=== PATIENT | female | born 1940 | race Caucasian/White ===

== ENCOUNTER 2017-10-24 17:38 | Emergency (ER) | payer OTHER ==
--- NOTE | 2017-10-24 18:03 | CPEKG ---
Heart Rate: 100 RR Interval: 600 P-R Interval: 208 QRSD Interval: 68 QT Interval: 344 QTC Interval: 444 P Briscoe: 72 QRS Briscoe: 28 T Wave Briscoe: 56 EKG Severity - BORDERLINE ECG - EKG Impression: SINUS TACHYCARDIA EKG Impression: PROBABLE LEFT ATRIAL ABNORMALITY Electronically Signed By: Vandana Pimentel 24-Oct-2017 21:00:51
--- NOTE | 2017-10-24 18:08 | EDPHY ---
HPI/HX/ROS/PE/MDM Narrative: CHIEF COMPLAINT: Shortness of breath, chest tightness HISTORY OF PRESENT ILLNESS: The patient is a 77 y/o female complaining of shortness of breath, mid-sternal chest tightness radiating to her back tonight. For the past 2 days she was driving to [place] from [place]. While eating dinner and drinking alcohol tonight she had a sudden full sensation associated with shortness of breath. These symptoms did not improve while standing up, although she had the sensation to stand up as she thought this would alleviate her symptoms. Denies history of indigestion, DVT or PE. Denies history of liver or kidney disease. No fever, chills, palpitations, vomiting, diarrhea, urinary complaints, headache , lightheadedness. REVIEW OF SYSTEMS: Aside from elements discussed in the HPI, a comprehensive 10-point review of systems was reviewed and is negative. PAST MEDICAL HISTORY: GI bleeds (on Protonix), appendectomy, tonsillectomy, hysterectomy, right knee replacement SOCIAL HISTORY: and daughter at bedside, lives in [place], visiting grandson in [place] VITAL SIGNS: Reviewed by me GENERAL: Anxious, well-developed, well-nourished, resting comfortably in no respiratory distress. HEENT: Atraumatic. Eyes: No icterus, no injection. Mouth: moist mucous membranes. No erythema or lesions. Neck: supple with no adenopathy. LUNGS: Clear to auscultation bilaterally, no wheezes, rhonchi or rales. CARDIAC: Tachycardic, no rubs, murmurs or gallops. ABDOMEN: Soft, nontender, nondistended, bowel sounds normal. BACK: No CVA tenderness. EXTREMITIES: No trauma. No edema. Range of motion is normal throughout. NEURO: Alert and oriented, grossly nonfocal. SKIN: Warm and dry, no rash. PSYCHIATRIC: Normal mentation, no agitation. Portions of this note were transcribed by a medical technologist chief. I personally performed a history, physical exam, medical decision making, and confirmed accuracy of information the transcribed note. ED Course: The patient is a 77 y/o female complaining of shortness of breath, mid-sternal chest tightness radiating to her back tonight. On exam she is tachycardic and anxious. Labs, EKG, and chest x-ray ordered. 1802: 12-LEAD EKG: Please see the full report in [facility]. My interpretation: Sinus tachycardia with a rate of 100 1927: Patient's chest x-ray reveals bronchitis and an atherosclerotic aorta. Laboratory data including troponin were negative. Patient reports feeling significantly improved after without acute intervention. She has no further chest pain or back pain. Abdomen is soft nontender. I do not believe that she needs to have of an acute evaluation for acute coronary syndrome. She and her family feel this is related to having alcohol tonight in conjunction with her GI history. 1939: Reassessed patient and discussed imaging and laboratory findings. I have advised her to take Pepcid at night for the next three nights. Return precautions provided; patient is comfortable with this plan. MDM: After history and physical examination, the differential for chest pain was considered, including but not limited to, myocardial ischemia, acute coronary syndrome, pulmonary embolus, chest wall pain, gastritis, reflux, esophageal spasm, pleural inflammation and pulmonary infectious causes. - Data Points Imaging Results: CXR Impression: 1. Bronchitis/airways disease. 2. No definite focal pneumonia. 3. Atherosclerotic aorta. Dictated By: Arsenio Aguillon Imaging: I viewed and interpreted images myself Laboratory Results: Laboratory Results 10/24/17 18:02 10/24/17 18:02 Medications Given: Discontinued Medications Famotidine (Pepcid) 20 mg PO EDNOW ONE Stop: 10/24/17 19:45 Last Admin: 10/24/17 20:07 Dose: 20 mg General Time Seen by Provider: 10/24/17 18:06 Initial Vital Signs: Initial Vital Signs Temperature (C) 36.5 C 10/24/17 17:47 Heart Rate 110 H 10/24/17 17:47 Respiratory Rate 18 10/24/17 17:47 Blood Pressure 137/66 H 10/24/17 17:47 O2 Sat (%) 92 10/24/17 17:47 O2 Delivery Mode Room Air O2 (L/minute) 2 Allergies/Adverse Reactions: NSAIDS (Non-Steroidal Anti-Inflamma Allergy (Verified 10/24/17 17:45) Home Medications: Medication Instructions Recorded Levothyroxine 10/24/17 Protonix 10/24/17 Prozac 10 MG (*) 10/24/17 Statin 10/24/17 Stool Softener 10/24/17 Departure - Departure Disposition: Home, Routine, Self-Care Clinical Impression: Chest pain, Stomach upset Condition: Good Instructions: Chest Pain (ED), Gastroesophageal Reflux Disease (ED), Abdominal Pain (ED) Additional Instructions: Increase your fluid intake. Take Pepcid at night for the next three nights. Avoid alcohol. Return to the emergency department for fever, worsening pain, shortness of breath or difficulty breathing, abdominal pain or other concerns. Referrals: [facility],. [Clinic] - As per Instructions Report Scribed for: Vandana Pimentel Report Scribed by: Roz Gaines Date of Report: 10/24/17 Time of Report: 18:08
[2017-10-24 18:36] LABS: PLATELET COUNT 305 10^3/uL (150-400)
[2017-10-24] MEDS ORDERED: FAMOTIDINE 20 MG TAB PO ONE (19:44)
[2017-10-24 20:08] VITALS: BP 105/66
== END 2017-10-24 20:15 | disposition home or self-care (01) ==
DX: R07.9 Chest pain, unspecified (principal); K30 Functional dyspepsia
CPT/HCPCS: G0480